=== PATIENT | female | born 1980 | race Caucasian/White ===

== ENCOUNTER 2017-12-08 01:23 | Emergency (ER) | payer BC, OTHER ==
[~2017-12-08] VITALS: Ht 160 cm; Wt 65.8 kg
[~2017-12-08 01:23] MED LIST: Ativan; BCP PO; BIRTH CONTROL; BUTA-234 PO; CEPH500C PO; CYCL10TA9 PO; DOXY100C2 PO; GABA300T PO; HYDR-3714 PO; HYDR1CAP2 PO; KETO10TA PO; ONDA-42 SL; PHEN-640 PO; PHEN200T27 PO; PRD20T PO; SULF1TAB35 PO
[2017-12-08] MEDS ORDERED: PROMETHAZINE INJ 25 MG/ML (PHENERGAN) AMP IVP ONE (02:00)
[2017-12-08] MEDS ORDERED: KETOROLAC 15 MG/ML VIAL IVP ONE (02:00)
[2017-12-08] MEDS ORDERED: NS IV 1000 ML 1,000 ML IV ONE (02:00)
[2017-12-08] MEDS ORDERED: KETOROLAC 30 MG/ML VIAL IVP ONE (02:15)
[2017-12-08] MEDS ORDERED: RX-ONDANSETRON 4 MG ODT (ZOFRAN) PPK #4 SL STA (02:36)
--- NOTE | 2017-12-08 02:39 | ED Headache ---
General Chief Complaint: Head/Cervical Problems Stated Complaint: MIGRAINE Nursing Triage Note: PT TO ED 9 W/ FAMILY FOR C/O HEADACHE ONSET 1700 YESTERDAY EVENING. PT REPORTS SHE TOOK A HYDROCODONE, UNKNOWN DOSE, BUT DENIES IMPROVEMENT Nursing Sepsis Screen: No Definite Risk Source: patient Exam Limitations: no limitations History of Present Illness Date Seen by Provider: Dec 08, 2017 Time Seen by Provider: 01:50 Initial Comments This 37 woman presents to the emergency room with intense migraine headache for the past few hours. She has associated vomiting but no vision changes. Symptoms are consistent with prior migraines. Allergies and Home Medications Allergies Coded Allergies: No Known Drug Allergies (Unverified , 01/29/14) Home Medications Cyclobenzaprine HCl 10 Mg Tablet, 1-2 TAB PO Q8H Prescribed by: FABIO VALLADARES on 05/20/15 0748 Hydrocodone Bit/Acetaminophen 1 Tab Tablet, 1 TAB PO Q4H PRN for PAIN Prescribed by: ISIDRO VILLASEÑOR on 09/05/14 1649 Ketorolac Tromethamine 10 Mg Tablet, 10 MG PO Q6H Prescribed by: FABIO VALLADARES on 05/20/15 0748 Phenazopyridine HCl 200 Mg Tablet, 1 TAB PO TID Prescribed by: FABIO VALLADARES on 05/20/15 0941 [Bcp] , 1 TAB PO DAILY, (Reported) Patient Home Medication List Home Medication List Reviewed: Yes Constitutional: no symptoms reported Eyes: No Symptoms Reported Ears, Nose, Mouth, Throat: no symptoms reported Respiratory: no symptoms reported Cardiovascular: no symptoms reported Gastrointestinal: see HPI Genitourinary: no symptoms reported Musculoskeletal: no symptoms reported Skin: no symptoms reported Psychiatric/Neurological: See HPI Past Dkcklko-Heeefb-Rvrego Hx Patient Social History Alcohol Use: Denies Use Recreational Drug Use: No Smoking Status: Never a Smoker Recent Foreign Travel: No Contact w/Someone Who Travel: No Recent Infectious Disease Expo: No Recent Hopitalizations: No Physical Abuse: No Sexual Abuse: No Mistreated: No Fear: No Surgeries History of Surgeries: Yes (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, DISCECTOMY) Respiratory History of Respiratory Disorde: No Cardiovascular History of Cardiac Disorders: No Neurological History of Neurological Disord: Yes (OCCASIONALLY) Neurological Disorders: Headaches /Migraines Reproductive System Hx Reproductive Disorders: No Sexually Transmitted Disease: No HIV/AIDS: No Female Reproductive Disorders: Denies Genitourinary History of Genitourinary Disor: No Gastrointestinal History of Gastrointestinal Di: No Musculoskeletal History of Musculoskeletal Dis: Yes (SURGERY HELPED) Musculoskeletal Disorders: Chronic Back Pain Endocrine History of Endocrine Disorders: No HEENT Loss of Vision: Bilateral Hearing Impairment: Denies Cancer History of Cancer: No Psychosocial History of Psychiatric Problem: No Suicide Risk Score: 0 Integumentary History of Skin or Integumenta: No Blood Transfusions History of Blood Disorders: No Adverse Reaction to a Blood Tr: No Family Medical History Significant Family History: No Pertinent Family Hx Physical Exam Vital Signs Vital Signs - First Documented 12/08/17 01:48 Temp 97.8 Pulse 81 Resp 20 B/P (MAP) 106/67 (80) Pulse Ox 98 O2 Delivery Room Air Capillary Refill : Less Than 3 Seconds General Appearance: WD/WN, no apparent distress HEENT: PERRL/EOMI, normal ENT inspection Cardiovascular: regular rate, rhythm, no edema Respiratory: lungs clear, normal breath sounds, no respiratory distress, no accessory muscle use Gastrointestinal: non tender, soft Extremities: normal inspection, no pedal edema Psychiatric: alert, oriented x 3 Crainal Nerves: normal hearing, normal speech, PERRL Motor/Sensory: no motor deficit, no sensory deficit Skin: normal color, warm/dry Progress/Results/Core Measures Results/Orders My Orders Orders - ORESTES CUNNINGHAM MD Saline Lock/Iv-Start (12/08/17 02:00) Ns Iv 1000 Ml (Sodium Chloride 0.9%) (12/08/17 02:00) Ketorolac Injection (Toradol Injection) (12/08/17 02:00) Promethazine Injection (Phenergan Injec (12/08/17 02:00) Ketorolac Injection (Toradol Injection) (12/08/17 02:15) Rx-Ondansetron Po (Rx-Zofran Po) (12/08/17 02:36) Medications Given in ED Current Medications Medications Dose Ordered Sig/Aaliyah Route Start Time Stop Time Status Last Admin Dose Admin Ketorolac Tromethamine 15 mg ONCE ONCE IVP 12/08/17 02:15 12/08/17 02:16 DC 12/08/17 02:20 15 MG Promethazine HCl 25 mg ONCE ONCE IVP 12/08/17 02:00 12/08/17 02:02 DC 12/08/17 02:19 25 MG Sodium Chloride 1,000 ml @ 0 mls/hr Q0M ONCE IV 12/08/17 02:00 12/08/17 02:02 DC 12/08/17 02:19 1,000 MLS/HR Vital Signs/I&O Vital Sign - Last 12Hours 12/08/17 12/08/17 01:48 02:53 Temp 97.8 Pulse 81 86 Resp 20 16 B/P (MAP) 106/67 (80) 105/68 Pulse Ox 98 98 O2 Delivery Room Air Room Air Blood Pressure Mean: 80 Progress Note : Progress Note Patient was treated with IV fluids, Toradol, and Phenergan with good results. She was dismissed with a take-home packet of Zofran. Departure Impression Impression: Primary Impression: Migraine Qualified Codes: G43.909 - Migraine, unspecified, not intractable, without status migrainosus Disposition: 01 HOME, SELF-CARE Condition: Improved Departure-Patient Inst. Decision time for Depature: 02:37 Referrals: JIMENA LOUIE MD (PCP/Family) Primary Care Physician Patient Instructions: Migraine Headache (DC) Add. Discharge Instructions: Stay well-hydrated. Rest of the remainder of the morning and a quiet, calm, dark environment. Dissolve Zofran (ondansetron) under the tongue every 4 hours as needed for nausea and vomiting. You may take ibuprofen up to 600 mg every 6 hours as needed and Tylenol (acetaminophen) up to 1000 mg every 6 hours as needed for headache. Return to care if symptoms worsen. All discharge instructions reviewed with patient and/or family. Voiced understanding. ORESTES CUNNINGHAM MD Dec 08, 2017 02:39
[2017-12-08 02:53] VITALS: BP 105/68
--- OUTSIDE RECORDS SUMMARY | 2017-12-08 10:04 | XMS REPORT | Clinical Summary ---
Author Author [facility] Address Unknown Phone Unavailable Care Team Providers Care Solar Sales Rep Name Role Phone PP Unavailable Allergies No Known Allergies Current Medications Prescription Sig. Disp. Refills Start End Date Status Date Buprenorphine place 1 film (8MG) by 62 0 05/17/20 Active HCl-Naloxone HCl sublingual route 2 times 12 (SUBOXONE) 8-2 MG FILM every day allow to dissolve slowly in mouth without chewing or swallowing fluoxetine (PROZAC) 40 MG take 1 capsule (40MG) by 0 02/24/20 Active capsule oral route every day in 13 the morning LORazepam (ATIVAN) 1 MG take 1 tablet (1MG) by 0 02/24/20 Active tablet oral route 3 times every 13 day as needed for anxiety .reconcile (MEDICATION No Sig 1 0 02/24/20 Active LIST IMPORTED) 13 Active Problems Problem Noted Date Opioid type dependence, unspecified (HCC) Social History Tobacco Use Types Packs/Day Years Used Date Current Every Day Smoker Comments: Smoking History Packs/day: Daily/Cigarettes/1 pack Sex Assigned at Date Recorded Not on file Last Filed Vital Signs Vital Sign Reading Time Taken Blood Pressure 91/55 05/17/2012 8:56 AM CDT Pulse - - Temperature - - Respiratory Rate - - Oxygen Saturation - - Inhaled Oxygen - - Concentration Weight 64 kg (141 lb) 05/17/2012 8:56 AM CDT Height 162.6 cm (5' 4") 05/15/2012 12:57 PM CDT Body Mass Index 24.2 05/17/2012 8:56 AM CDT Plan of Treatment Health Maintenance Due Date Last Done Comments Varicella Vaccines (1 of 1994 2 - 2 Dose Adolescent Series) DTaP,Tdap,and Td Vaccines 2000 (1 - Tdap) CERVICAL CANCER SCREENING 2002 Influenza Vaccine (Season 05/06/2018 Ended) Results Not on filefrom Last 3 Months
--- OUTSIDE RECORDS SUMMARY | 2017-12-08 10:04 | XMS REPORT | Continuity of Care Document ---
Author [facility] Address Unknown Phone Unavailable Allergies Active Description Code Type Severity Reaction Onset Reported/Identified Relationship to Patient Clinical Status Yes No Known Drug Allergies [id number] Drug Allergy Unknown N/A 01/29/2014 Medications There is no data. Problems Date Dx Coded Attending Type Code Diagnosis Diagnosed By 04/13/2013 NAYANA PACLILLIAN 300.00 ANXIETY 04/13/2013 NAYANA PACLILLIAN 311 DEPRESSION 04/13/2013 [facility] PACLILLIAN 724.3 SCIATICA 01/30/2014 MARISA BREWSTER, ORESTES T Ot 346.90 01/30/2014 MARISA BREWSTER, ORESTES T Ot 916.4 01/30/2014 MARISA BREWSTER, ORESTES T Ot E000.8 01/30/2014 MARISA BREWSTER, ORESTES T Ot E906.4 02/03/2014 SHANNONNDER DO, GAUTAM S Ot 305.00 02/03/2014 SHANNONNDER DO, GAUTAM S Ot 346.90 02/03/2014 SHANNONNDER DO, GAUTAM S Ot 722.6 02/03/2014 SHANNONNDER DO, GAUTAM S Ot 965.09 02/03/2014 SHANNONNDER DO, GAUTAM S Ot 969.72 02/03/2014 SHANNONNDER DO, GAUTAM S Ot 980.0 02/03/2014 SHANNONNDER DO, GAUTAM S Ot E850.2 02/03/2014 SHANNONNDER DO, GAUTAM S Ot E854.2 02/03/2014 SHANNONNDER DO, GAUTAM S Ot E860.0 07/18/2014 MARILYN BREWSTER, DELFIN Martel Ot 722.10 07/18/2014 MARILYN BREWSTER, DELFIN Martel Ot 722.52 07/18/2014 MARILYN BREWSTER, DELFIN Martel Ot 727.40 07/19/2014 WHITLEY BREWSTER, EVI Harris Ot 722.10 08/19/2014 EVI ARREAGA MD Ot 722.10 09/05/2014 ISIDRO DALTON Ot 599.0 09/05/2014 ISIDRO DALTON Ot 626.2 09/05/2014 ISIDRO DALTON Ot V45.89 05/11/2015 DELFIN SANDERS MD Ot 722.10 05/11/2015 DELFIN SANDERS MD Ot 722.52 05/11/2015 DELFIN SANDERS MD Ot 727.40 05/11/2015 EVI ARREAGA MD Ot 722.10 05/11/2015 CELI KENNEDY ATTRACTIONS ASSOCIATE Ot 595.9 05/11/2015 CELI KENNEDY APRN Ot 724.2 05/20/2015 FELTON RIOJAS MD Ot 598.9 05/20/2015 FELTON RIOJAS MD Ot 788.20 Procedures There is no data. Results There is no data. Encounters ACCT No. Visit Date/Time Discharge Status Pt. Type Provider Facility Loc./Unit Complaint [id number] 04/13/2013 09:20:00 04/27/2013 09:03:00 DIS Outpatient NAYANA LILLIAN AGUILAR L [id number] 05/20/2015 06:05:00 05/20/2015 10:00:00 DIS Outpatient FELTON RIOJAS MD [facility] [id number] 05/16/2015 05:37:00 05/16/2015 23:59:59 CLS Outpatient FELTON RIOJAS MD Via [facility] PREOP [id number] 05/11/2015 17:17:00 05/11/2015 19:02:00 DIS Emergency CELI KENNEDY APRN [facility] ER [id number] 09/05/2014 14:16:00 09/05/2014 17:03:00 DIS Emergency ISIDRO DALTON [facility] ER [id number] 07/18/2014 10:14:00 07/18/2014 23:59:59 CLS Outpatient EVI ARREAGA MD [facility] RAD [id number] 02/02/2014 23:54:00 02/03/2014 11:30:00 DIS Inpatient SIDRA BACA, GAUTAM S [facility] ICU [id number] 01/29/2014 23:42:00 01/30/2014 00:40:00 DIS Emergency MARISA BREWSTER, ORESTES Gifford [facility] ER [id number] 12/26/2013 15:33:00 12/26/2013 23:59:59 CLS Outpatient MARILYN BREWSTER, DELFIN Martel [facility] RAD [id number] 05/20/2015 06:49:01 ACT Document Registration [id number] 09/27/2017 14:35:00 09/27/2017 23:59:59 CLS Outpatient CARLTON SONG APRN [facility]
== END 2017-12-08 02:53 | disposition home or self-care (01) ==
LOC: EDUNIT# 01:23 → ER 01:25
DX: G43.909 Migraine, unspecified, not intractable, without status migrainosus (principal); Z96.0 Presence of urogenital implants; Z98.1 Arthrodesis status
CPT/HCPCS: 96374; 96375

== ENCOUNTER → 2023-02-16 | Outpatient (CLI) | payer BC ==
[~2023-02-16] MED LIST changes: +CYCL10TA25 PO; -CYCL10TA9 PO; -SULF1TAB35 PO; +SULF1TAB38 PO
--- NOTE | 2023-02-17 16:50 | Diagnostic Imaging Report ---
INDICATION: Routine screening. Comparison is made with prior mammogram from 04/03/2021. 2-D and 3-D bilateral screening mammography was performed with CAD. Both breasts are heterogeneously dense, limiting the sensitivity of mammography. The parenchymal pattern is stable. No mass or malignant-appearing microcalcifications are seen. Axillae are unremarkable. IMPRESSION: No mammographic features suspicious for malignancy are identified. ACR BI-RADS Category 1: Negative. Result letter will be mailed to the patient. Note: At least 10% of breast cancer is not imaged by mammography. BI-RADS Category 1 Dictated by: Dictated on workstation # [id number]
== END ==
LOC: RAD 11:05
PROVIDERS: ATTEND Obstetrics & Gynecology
DX: Z12.31 Encounter for screening mammogram for malignant neoplasm of breast (principal)
CPT/HCPCS: 77063; 77067